=== PATIENT | male | born 1975 | race Caucasian/White ===

== ENCOUNTER → 2017-09-28 14:01 | Outpatient (CLI) | payer MEDICARE, SELFPAY ==
--- NOTE | 2017-09-28 14:04 | CA_ITS ---
PROCEDURE: 2-D M-mode and color Doppler study INDICATIONS FOR THE TEST: Chest pain+ COPD Heart Murmur Tobacco Smoking+ Palpitations+ Fatigue+ Syncope+ Edema Hypertension+Diabetes Mellitus Rheumatic Fever SOB+RENTERIA+Obesity+Hyperlipidemia+ Family History HD+ Additional History dizziness, seizure disorder, anxiety, migraines PATIENT INFORMATION HEIGHT: 70 WEIGHT: 208 GENDER: Male B/P: 146/89 2-D/M-MODE INTERPRETATION: 2-D MEASUREMENTS OBSERVED VALUES IN CMS Right Ventricular Dimension (RVDd) 1.8 Interventricular Septum (Thickness)(IVsd) 1.2 Left Ventricular Internal Dimensions(LVIDd) 4.7 Left Ventricular Posterior Wall (Thickness)(LVPWd) 1.0 Aortic Root 2.9 Aortic Cusp Separation 2.1 Left Atrial Dimensions (LAD) 3.2 2D 1. Left atrium is normal size, left ventricle is normal size, there is no concentric left ventricular hypertrophy, visually estimated ejection fraction 55% with no obvious regional wall motion abnormality. 2. The right atrium and right ventricle are normal size and contractility. 3. The aortic, mitral and tricuspid valve are grossly normal. 4. The pulmonic valve is poorly visualized. 5. No significant pericardial effusion noted. DOPPLER INTERROGATION: Doppler interrogation of the aortic, mitral and tricuspid valvular presence of mild mitral and tricuspid regurgitation, tricuspid and jet velocity is insufficient for calculation of the right ventricular systolic pressure, diastolic parameters are within normal range. CONCLUSION: 1. Normal left ventricular size, preserved left ventricular systolic function, visually estimated ejection fraction 55% with no obvious regional wall motion abnormality, diastolic parameters are within normal range. 2. Mild mitral and tricuspid regurgitation 3. No significant pericardial effusion noted.
== END ==
PROVIDERS: PCP Family Medicine; Visit Provider Internal Medicine
DX: R07.89 Other chest pain (principal); I10 Essential (primary) hypertension; G40.909 Epilepsy, unspecified, not intractable, without status epilepticus; Z82.49 Family history of ischemic heart disease and other diseases of the circulatory system; F17.200 Nicotine dependence, unspecified, uncomplicated
CPT/HCPCS: 93017; 93306

== ENCOUNTER → 2018-03-03 09:47 | Outpatient (CLI) | payer MEDICARE, SELFPAY ==
--- NOTE | 2018-03-03 09:59 | US_ITS ---
US gallbladder HISTORY: ITS.REASON: RUQ PAIN, NAUSEA ORDERING PHYSICIAN: Kennedi Fernandez PATIENT AGE: 42 years Comparison: None FINDINGS: PANCREAS: Unremarkable. No obvious mass or abnormal fluid collection. No ductal dilatation LIVER: Small area of increased echogenicity present in the left hepatic lobe centrally and may be due to an area of focal fatty infiltration RIGHT KIDNEY: Unremarkable. Normal size and echogenicity. No hydronephrosis GALLBLADDER: N sludge in the gallbladder. No shadowing stones, gallbladder wall thickening, pericholecystic, or ductal dilatation. IMPRESSION: 1. Gallbladder sludge. No stones apparent. 2. Focal fatty infiltration of liver
== END ==
PROVIDERS: PCP Family Medicine; Visit Provider Family Medicine
DX: R10.11 Right upper quadrant pain (principal); R11.0 Nausea
CPT/HCPCS: 76705

== ENCOUNTER → 2018-03-30 10:25 | Outpatient (CLI) | payer MEDICARE, SELFPAY ==
--- NOTE | 2018-03-30 10:30 | NM_ITS ---
NM hepatobiliary w pharm HISTORY: Right upper quadrant pain with nausea, gallbladder sludge ITS.REASON: nausea ORDERING PHYSICIAN: Yifan Hawthorne MD PATIENT AGE: 42 years COMPARISON: None DOSE: 8.11 MCI TC Choletec 2 MCG CCK INJ into RT ANT FINDINGS: Homogeneous activity is present within the hepatic parenchyma. Activity is present in the gallbladder by 15 minutes. Activity is present in the small bowel by 5 minutes. The gallbladder ejection fraction is calculated to be 82% The patient did not report pain or other symptoms during CCK infusion. IMPRESSION: Unremarkable hepatobiliary scan and gallbladder ejection fraction. No evidence of common or cystic duct obstruction with normal gallbladder ejection fraction
--- NOTE | 2018-03-30 10:52 | HMH.ITSHM ---
Current Home Medications as stated by this patient Avinash Alas or customer assistance representative. []LISINOPRIL CRESTOR METOPROLOL CLONIPIN ANXIETY MED
== END ==
PROVIDERS: PCP Family Medicine; Visit Provider Surgery
DX: R11.0 Nausea (principal)
CPT/HCPCS: 78227; A9537; J2805

== ENCOUNTER → 2018-03-31 08:55 | Outpatient (CLI) | payer MEDICARE, SELFPAY ==
--- NOTE | 2018-03-31 09:04 | CT_ITS ---
CT abdomen pelvis w con CLINICAL INDICATION: Midepigastric pain with nausea ITS.REASON: nausea ORDERING PHYSICIAN: Yifan Hawthorne MD PATIENT AGE: 42 years COMPARISON: None TECHNIQUE: Axial images obtained with sagittal and coronal reformats. All CT scans at the facility use one or more dose reduction, viz: automated exposure control, ma/kV adjustment per patient size (including targeted exams where dose is matched to indication, i.e. head), or iterative reconstruction technique. PROCEDURE: Oral Contrast: Redicat IV Contrast: 75 mL's Optiray 350 . FINDINGS: Lung bases are clear. There is mild thickening of the distal esophagus nonspecific. There are 3 somewhat ill-defined areas of decreased attenuation within the liver 13 x 9 mm left hepatic lobe anteriorly, 6 mm left hepatic lobe posteriorly, not millimeters right hepatic lobe anteriorly. These are nonspecific. No radio opaque gallstones. Spleen, adrenal glands, pancreas, and kidneys have an unremarkable appearance. Unremarkable appendix. No intestinal obstruction. There is diverticulosis of the descending and sigmoid colon. There is some minimal haziness of the pericolic fat in the left lower quadrant at the junction of the sigmoid and descending colon. A small collection of gas is present in this region which is adjacent to a diverticulum suspicious for a small contained perforation of a diverticulum with mild diverticulitis. No drainable fluid collection is evident. No distant free air is apparent. No acute bony findings. There are mild degenerative changes of the hips. Small nodes are present in the inguinal region. IMPRESSION: 1. There are findings compatible for a small contained perforation of a diverticulum with mild diverticulitis in the left lower quadrant at the proximal sigmoid region. There is diverticulosis of the descending and sigmoid colon. 2. At least 3 nonspecific hypoattenuating lesions of the liver . Consider follow-up with hemangioma protocol without and with contrast.
--- NOTE | 2018-03-31 09:25 | HMH.ITSHM ---
Current Home Medications as stated by this patient Avinash Alas or passenger representative. []LISINOPRIL,ASPRIRIN,KLONOPINE,CRESTOR,ZOLOFT,METROPOLOL [place]IZ[place]AN
== END ==
PROVIDERS: PCP Family Medicine; Visit Provider Surgery
DX: R11.0 Nausea (principal)
CPT/HCPCS: 74177

== ENCOUNTER → 2018-07-06 10:07 | Outpatient (CLI) | payer MEDICARE, SELFPAY ==
--- NOTE | 2018-07-06 10:11 | CT_ITS ---
CT abdomen pelvis wo/w con CLINICAL INDICATION: Abdominal pain, diverticulitis, liver lesions. ITS.REASON: hemagioma protocol ORDERING PHYSICIAN: Yifan Hawthorne MD PATIENT AGE: 42 years COMPARISON: 03/31/2018 TECHNIQUE: Axial images obtained without and with contrast with sagittal and coronal reformats. All CT scans at the facility use one or more dose reduction, viz: automated exposure control, ma/kV adjustment per patient size (including targeted exams where dose is matched to indication, i.e. head), or iterative reconstruction technique. PROCEDURE: Oral Contrast: None IV Contrast: 75 mL's Omnipaque 350. FINDINGS: Lung bases are clear. On the unenhanced images there is a 9 mm isodensity in the left hepatic lobe as seen on the study of 03/31/2018. Not well delineated on the arterial phase images and is barely perceptible on the portal venous phase images. A 7 mm isodensity present in the left hepatic lobe posteriorly as seen on the portal venous phase. These are not significant change. Previously noted isodense lesion in the right hepatic lobe anteriorly is not demonstrated on today's exam. These nodules are too small to categorize and could represent small hemangiomas. They're not significantly changed. No new lesions are evident. The gallbladder, spleen, adrenal glands, and pancreas have an unremarkable appearance. The kidneys are also unremarkable. There are few small lymph nodes in the periaortic region nonspecific. No evidence of appendicitis. There are scattered diverticula within the descending and sigmoid colon. No evidence of diverticulitis. No abscess or perforation apparent. There is a small umbilical hernia containing fat. No acute bony findings. IMPRESSION: 1. No evidence of diverticulitis. Previously noted contained perforation no longer apparent there is diverticulosis of the descending and sigmoid colon. 2. At least 2 isodense lesions of the liver which are too small to categorize and could be due to small hemangiomas. Consider 6 month follow-up for confirmation of stability.
== END ==
PROVIDERS: PCP Surgery; Visit Provider Surgery
DX: D18.00 Hemangioma unspecified site (principal); K57.92 Diverticulitis of intestine, part unspecified, without perforation or abscess without bleeding
CPT/HCPCS: 74178

== ENCOUNTER → 2021-06-04 16:29 | Outpatient (CLI) | payer MEDICARE, SELFPAY ==
[2021-06-04 18:44] LABS: Basophils % 0.5 % (0.1-2.0); Eosinophils # 0.1 K/mm3 (0.0-0.4); Eosinophils % 1.7 % (0.1-12.0); Hematocrit 41.6 % (42.0-52.0); Hemoglobin 13.3 g/dL (14.1-18.0); Lymphocytes # 1.2 K/mm3 (0.7-4.5); Lymphocytes % 16.2 % (10-50); Mean Corpuscular HGB Conc 31.8 g/dL (31.8-35.4); Mean Corpuscular Hemoglobin 31.2 pg (27.0-31.2); Mean Corpuscular Volume 98.1 fl (80-94); Mean Platelet Volume 9.5 fl (7.4-10.4); Monocytes # 0.4 K/mm3 (0.1-1.0); Monocytes % 5.6 % (1.7-9.3); Neutrophils # 5.6 K/mm3 (1.8-7.8); Neutrophils % 75.9 % (37.0-80.0); Platelet Count 267 K/mm3 (142-424); Red Blood Count 4.24 M/mm3 (4.60-6.20); Red Cell Distribution Width 16.6 % (11.5-17.5); White Blood Count 7.4 K/mm3 (4.8-10.8)
[2021-06-04 18:56] LABS: Alanine Aminotransferase 24 U/L (12-78); Albumin Level 4.3 g/dl (3.5-5.0); Albumin/Globulin Ratio 1.7 (1.1-1.8); Alkaline Phosphatase 86 U/L (38-126); Anion Gap 12.5 mEq/L (5-15); Aspartate Amino Transferase 30 U/L (17-59); Bilirubin,Total 0.3 mg/dl (0.2-1.3); Blood Urea Nitrogen 10 mg/dl (9-20); Calcium 9.3 mg/dl (8.4-10.2); Carbon Dioxide 29 mmol/L (22.0-30.0); Chloride 108 mmol/L (98-107); Chol/HDL Ratio 4.3 (1-3.5); Cholesterol 145 mg/dl (140-200); Estimated Glomerular Filt Rate 80 ml/min (>60); GFR (African American) 97 ML/MIN (>60); Globulin 2.6 g/dL (1.3-3.2); Glucose 98 mg/dl (74-100); HDL Cholesterol 34 mg/dl (40-60); Potassium 4.5 mmoL/L (3.5-5.1); Sodium 145 mmol/L (136-145); Total Protein,Serum 6.9 g/dl (6.3-8.2)
[2021-06-04 19:01] LABS: Triglycerides 439 mg/dl (30-150)
[2021-06-04 19:07] LABS: Direct LDL Cholesterol 63.04 mg/dL (100-129)
[2021-06-04 19:13] LABS: 25-OH Vitamin D, Total 25.2 ng/mL (30-100); T4 (Thyroxine) 5.4 ug/dl (5.53-11.0)
[2021-06-04 19:26] LABS: Thyroid Stimulating Hormone 0.92 uIU/mL (0.465-4.68)
== END ==
PROVIDERS: Visit Provider Emergency Medicine
DX: R07.89 Other chest pain (principal); R53.83 Other fatigue; E55.9 Vitamin D deficiency, unspecified; G43.909 Migraine, unspecified, not intractable, without status migrainosus; F41.9 Anxiety disorder, unspecified
CPT/HCPCS: 80053; 80061; 82306; 84436; 84443; 85025

== ENCOUNTER → 2022-06-23 08:20 | Outpatient (CLI) | payer MEDICARE, SELFPAY ==
--- NOTE | 2022-06-23 08:20 | US_ITS ---
FINAL REPORT CLINICAL HISTORY: RUQ pain FINDINGS: Ultrasound images of the right upper quadrant were obtained. The pancreas is obscured by bowel gas. The liver parenchyma is increased echogenicity. There is an area of fatty sparing adjacent to the gallbladder. The gallbladder is well visualized and the wall appears normal. There are no gallstones. The common duct is normal. Limited images of the right kidney are unremarkable. IMPRESSION: Fatty liver. Reviewed, Interpreted and Dictated by Abiel Heard MD Transcribed by Justin Hartley Authenticated and [facility]
== END ==
LOC: RAD 08:20
PROVIDERS: PCP Emergency Medicine; Visit Provider Emergency Medicine
DX: R10.11 Right upper quadrant pain (principal)
CPT/HCPCS: 76705

== ENCOUNTER → 2022-10-29 12:00 | Outpatient (CLI) | payer MEDICARE, SELFPAY ==
[2022-10-29 19:19] LABS: Alanine Aminotransferase 31 U/L (12-78); Albumin Level 3.7 g/dl (3.5-5.0); Albumin/Globulin Ratio 1.3 (1.1-1.8); Alkaline Phosphatase 121 U/L (38-126); Anion Gap 14.4 mEq/L (5-15); Aspartate Amino Transferase 34 U/L (17-59); Blood Urea Nitrogen 6 mg/dl (9-20); Calcium 8.3 mg/dl (8.4-10.2); Carbon Dioxide 26 mmol/L (22.0-30.0); Chloride 106 mmol/L (98-107); Chol/HDL Ratio 2.2 (1-3.5); Cholesterol 102 mg/dl (140-200); Estimated Glomerular Filt Rate 80 ml/min (>60); GFR (African American) 97 ML/MIN (>60); Globulin 2.9 g/dL (1.3-3.2); Glucose 107 mg/dl (74-100); HDL Cholesterol 47 mg/dl (40-60); Potassium 3.4 mmoL/L (3.5-5.1); Sodium 143 mmol/L (136-145); Total Protein,Serum 6.6 g/dl (6.3-8.2); Triglycerides 88 mg/dl (30-150); VLDL Cholesterol 18 mg/dL (0-40)
[2022-10-29 19:27] LABS: 25-OH Vitamin D, Total 40.9 ng/mL (30-100)
[2022-10-29 19:31] LABS: C-Reactive Protein 38.4 mg/L (0-4)
[2022-10-29 19:34] LABS: Bilirubin,Total 0.1 mg/dl (0.2-1.3)
[2022-10-29 19:36] LABS: Direct LDL Cholesterol 41.21 mg/dL (100-129)
[2022-10-29 19:40] LABS: T4 (Thyroxine) 5.5 ug/dl (5.53-11.0)
[2022-10-29 19:46] LABS: Basophils % 0.1 % (0.1-2.0); Eosinophils # 0.2 K/mm3 (0.0-0.4); Eosinophils % 2.4 % (0.1-12.0); Hematocrit 35.8 % (42.0-52.0); Hemoglobin 10.6 g/dL (14.1-18.0); Lymphocytes # 1.3 K/mm3 (0.7-4.5); Mean Corpuscular HGB Conc 29.6 g/dL (31.8-35.4); Mean Corpuscular Hemoglobin 26.3 pg (27.0-31.2); Mean Corpuscular Volume 88.8 fl (80-94); Mean Platelet Volume 8.8 fl (7.4-10.4); Monocytes # 0.6 K/mm3 (0.1-1.0); Monocytes % 6.4 % (1.7-9.3); Neutrophils # 7.5 K/mm3 (1.8-7.8); Neutrophils % 78.1 % (37.0-80.0); Platelet Count 275 K/mm3 (142-424); Red Blood Count 4.03 M/mm3 (4.60-6.20); Red Cell Distribution Width 17.9 % (11.5-17.5); White Blood Count 9.7 K/mm3 (4.8-10.8)
[2022-10-29 19:53] LABS: Prostate Specific Ag Screen 0.3 ng/ml (0.0-4.0); Thyroid Stimulating Hormone 2.16 uIU/mL (0.465-4.68)
[2022-10-29 21:16] LABS: Erythrocyte Sedimentation Rate 55 mm/hr (0-15)
[2022-10-31 11:08] LABS: Testosterone,Total 181 ng/dL (264-916)
== END ==
LOC: LAB.DROPOF 10-30 00:17
PROVIDERS: Family Medicine; PCP Emergency Medicine; Visit Provider Emergency Medicine
DX: K58.9 Irritable bowel syndrome, unspecified (principal); K62.5 Hemorrhage of anus and rectum; E55.9 Vitamin D deficiency, unspecified; E66.9 Obesity, unspecified; I10 Essential (primary) hypertension; Z12.5 Encounter for screening for malignant neoplasm of prostate; R07.89 Other chest pain; Z68.31 Body mass index [BMI] 31.0-31.9, adult
CPT/HCPCS: 80053; 80061; 82306; 84403; 84436; 84443; 85025; 85651; 86140; G0103

== ENCOUNTER → 2022-10-31 10:15 | Outpatient (CLI) | payer MEDICARE, SELFPAY ==
[2022-10-31 11:45] LABS: Iron 25 ug/dL (49-181)
[2022-10-31 11:49] LABS: Hemoglobin A1C 5.6 % (4.0-6.0)
[2022-10-31 11:56] LABS: Total Iron Binding Capacity 438 ug/dL (261-462)
[2022-10-31 12:21] LABS: Ferritin 10.1 ng/ml (17.9-464)
== END ==
PROVIDERS: PCP Emergency Medicine; Visit Provider Emergency Medicine
DX: R73.09 Other abnormal glucose (principal); I10 Essential (primary) hypertension; K62.5 Hemorrhage of anus and rectum; D50.9 Iron deficiency anemia, unspecified
CPT/HCPCS: 82728; 83036; 83540; 83550

== ENCOUNTER 2022-11-10 10:40 | Day surgery (SDC) | payer MEDICARE, SELFPAY ==
[2022-11-07 10:37] VITALS: BMI 32.3
[2022-11-10 10:56] VITALS: BP 156/67; PULSE 96; RESP 18; TEMP 36.3; O2SAT 94
--- NOTE | 2022-11-10 11:07 | EXP.ANES.CKL ---
[facility] Disclaimer: The information contained in this section may have been updated after the patient was seen, as this information can be updated by other users. Medical History Fatigue Hyperlipidemia Low iron Low testosterone Snoring Surgical History History of hemorrhoidectomy Family History Other Family history of cancer Family history of myocardial infarction Social History Smoking Status: Current every day smoker tobacco type: cigarettes packs per day: 1 alcohol intake: current substance use type: denies use current occupational status: other Travel in the last 8 weeks: None caffeine: Yes [facility] Anesthesia Checklist Patient Identification Patient Identification: Arm Band and Verbal (Name & ) Structural Data Admitted From: Home Planned Operative Procedure/s: Colonoscopy Consent for Planned Operative Procedure(s) Verified: Yes NPO Status Verified Time NPO: 00:00 Airway Assessment Mallampati Score:: Class II C-Spine Mobility Assessed: Yes TMJ Mobility Assessed: Yes Dentition: Good Dentition Neurological Assessment Level of Consciousness: Awake Hx Seizures: No Numbness or tingling in extremities: No Anesthesia Plan Anesthesia Risk discussed: Yes Anesthesia Plan: Verified ASA Class: II Anesthesia Type: MAC
[2022-11-10 12:29] VITALS: O2SAT 95
--- NOTE | 2022-11-10 13:18 | HMH.SCOPE ---
Procedure: Date: 11/10/22 Patient Date of :: 1975 Procedure Performed:: Total colonoscopy to terminal ileum with polypectomy using cold snare and hemorrhoid banding x2 Indications:: Patient is a 47-year-old male referred by Dr. Kulkarni for colonoscopy. This has been going on for several years. Characterized as bright red blood in the stool. It occurs daily. I had previously seen him for this in the past and plan was for colonoscopy. He has a history of chronic loose stools. In 2019 I saw the patient for possible gallbladder issues. His symptoms seemed atypical and I had him undergo CT scan which revealed findings consistent with sigmoid diverticulitis with contained microperforation. He completed an antibiotic course. Plan was to proceed with colonoscopy after nonoperative management of diverticulitis in several weeks. That was in 2019. He did not follow-up. Has apparently had intermittent rectal bleeding for years but over the past year he has had significant passage of fresh blood per rectum mostly daily. Denies pain. He was seen as a surgical consultation. Options were discussed with him. Plan was made for expeditious outpatient colonoscopy. Performing Provider:: Yifan Hawthorne MD Referring Provider:: Cal Kulkarni MD Sedation:: MAC sedation Procedure:: Patient history was obtained and appropriate physical examination was performed. Patient's medications and allergies were reviewed. Informed consent was obtained after explaining the benefits, alternatives, and risks of the procedure including, but not limited to, bleeding, perforation, missed lesions, and adverse reaction to anesthesia medications. Patient was transported to endoscopy procedure room. Patient was connected to monitoring devices. Throughout the procedure the patient's blood pressure, pulse, and oxygen saturations were monitored continuously. Patient identification and planned procedure were verified by the staff. Patient was positioned in lateral decubitus position. Digital anorectal exam was performed. Variable stiffness Olympus colonoscope was inserted and advanced under direct visualization to the cecum. Adequacy of the colonic preparation was noted. The colonoscope was advanced a short distance into the terminal ileum. The colonoscope was then slowly withdrawn while carefully examining the color, texture, anatomy, and integrity of the mucosoa circumferentially. Within the rectum retroflexion was performed. Colonoscope was then withdrawn. . Colonoscope was advanced to the cecum with some minor difficulty requiring pressure due to redundancy and floppiness of the sigmoid colon. It was advanced into the terminal ileum. In the descending colon there was a small sessile polyp removed with cold cutting snare. He had some appreciable sigmoid diverticulosis. Within the rectum retroflexion revealed prolapsing mildly inflamed circumferential hemorrhoids. A couple of piles of hemorrhoids were more irritated appearing and bled easily. The colonoscope was exchanged with the endoscope with the super 7 banding device. Hemorrhoid piles were banded x2 with 2 bands per hemorrhoid pile. Endoscope was withdrawn. . Findings:: Floppy redundant sigmoid colon Sigmoid diverticulosis Descending colon sessile polyp Somewhat inflamed internal hemorrhoids, banded x2 Recommendations:: Follow-up on pathology. He could require medical treatment and more definitive surgical treatment if hemorrhoids continue to bleed. Pending the pathology likely repeat colonoscopy within 5 years. Complications:: None immediately apparent Estimated blood obtained (mL): 3 Colonoscopy Component Colonoscopy Component Was a colonoscopy performed during today's procedure?: Yes Recommended follow up colonoscopy of at least 10 years?: No If no, follow up colonoscopy recommended in ___ years?: 5 Reason for not recommending >/= 10 yr follow-up interval?: Polyp
[2022-11-10 13:20] VITALS: BP 85/43; PULSE 94; RESP 18; O2SAT 95
[2022-11-10 13:30] VITALS: BP 92/44; PULSE 87; RESP 18; O2SAT 100
[2022-11-10 13:40] VITALS: BP 116/59; PULSE 87; RESP 18; O2SAT 98
== END 2022-11-10 13:40 | disposition home or self-care (01) ==
PROVIDERS: PCP Emergency Medicine; Visit Provider Surgery
PROC: 0DJD8ZZ Inspection of Lower Intestinal Tract, Via Natural or Artificial Opening Endoscopic (ICD-10-PCS; principal; 2022-11-10 11:30)
DX: K57.31 Diverticulosis of large intestine without perforation or abscess with bleeding (principal); D12.4 Benign neoplasm of descending colon; K64.8 Other hemorrhoids
CPT/HCPCS: 45385; 88305; J2704

== ENCOUNTER → 2023-02-13 09:10 | Outpatient (CLI) | payer MEDICARE, SELFPAY ==
[2023-02-12 21:30] LABS: Phencyclidine Screen,Urine Negative ng/ml (<25)
[2023-02-12 21:37] LABS: Amphetamine/Metha Screen,Urine Negative ng/ml (<1000); Barbiturates Screen,Urine Negative ng/ml (<200)
[2023-02-12 21:38] LABS: Benzodiazepines Screen,Urine Negative ng/ml (<200)
[2023-02-12 21:39] LABS: Cannabinoid Screen,Urine Positive ng/ml (<50)
[2023-02-12 21:42] LABS: Cocaine Screen,Urine Negative ng/ml (<300); Methadone Screen,Urine Negative ng/ml (<300)
[2023-02-12 21:43] LABS: Opiate Screen,Urine Negative ng/ml (<300)
== END ==
PROVIDERS: PCP Family Medicine; Visit Provider Family Medicine
DX: Z79.899 Other long term (current) drug therapy (principal)
CPT/HCPCS: 80305

== ENCOUNTER → 2023-03-25 15:09 | Outpatient (CLI) | payer MEDICARE, SELFPAY | LOC: SL 15:11 | PROVIDERS: PCP Family Medicine; Visit Provider Family Medicine | DX: G47.33 Obstructive sleep apnea (adult) (pediatric) (principal); R06.83 Snoring | CPT/HCPCS: G0399 ==